=== PATIENT | female | born 1970 | race Hispanic/Latino ===

== ENCOUNTER 2019-06-09 16:19 | Outpatient (CLI) | payer BC, SELFPAY ==
--- NOTE | ~2019-06-09 | XR_ITS ---
XR ankle LT min 3V DATE: 06/09/2019 16:35 INDICATION: Left ankle injury, pain TECHNIQUE: 4 views COMPARISON: None FINDINGS: No fracture or dislocation of the ankle or disruption of the ankle mortise. No periosteal r eaction or bone destruction. IMPRESSION: Negative Reviewed, dictated and finalized at location B. IMPRESSION: Negative
== END 2019-06-09 16:20 ==
PROVIDERS: PCP Family Medicine; Visit Provider Family Medicine
DX: S99.912A Unspecified injury of left ankle, initial encounter (principal)
CPT/HCPCS: 73610

== ENCOUNTER 2019-09-09 11:57 | Inpatient (IN) | payer BC, MEDICAID, SELFPAY ==
--- NOTE | ~2019-09-09 | US_ITS ---
EXAMINATION: US right upper quadrant EXAM DATE: 09/09/2019 15:23 INDICATION: Right upper quadrant pain, nausea. Transaminitis. COVID 19 positive. TECHNIQUE: Multiple grayscale and Doppler images of the abdomen right upper quadrant were obtained (b y a technologist who performed the scan) and subsequently reviewed. There is no prior study for eliseo allen. FINDINGS: The pancreatic head and body are normal in appearance. The pancreatic tail is not visualized. Mildl y echogenic liver parenchyma, hepatic steatosis. There are no focal liver lesions identified. Ther e is no evidence of intrahepatic biliary duct dilation. Portal venous flow was seen in the hepatoped al, normal direction and has normal Doppler waveform. No right-sided hydronephrosis. Common bile duct measures 3 mm, which is normal. The gallbladder wall is normal in thickness, with ex pected amount of distention. No sonographic evidence of pericholecystic fluid. There is no cholelit hiases. Technologist performing exam reports patient did not demonstrate sonographic Gutierrez's sign. Please note that this sign is less reliable in patients who have received pain medication. IMPRESSION: 1. Hepatic steatosis. Reviewed, dictated and finalized at location B. IMPRESSION: 1. Hepatic steatosis.
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
[2019-09-09 12:21] VITALS: BP 102/71; PULSE 128; RESP 16; TEMP 37.7; O2SAT 99
[2019-09-09 12:33] LABS: Basophils Absolute Auto 0.1 K/mm3 (0.0-0.1); Basophils Percent Auto 0.3 % (0.2-1.2); Hematocrit 37.7 % (37.0-47.0); Hemoglobin 12.6 g/dL (12.0-15.0); Immature Granulocyte Absolute 0.16 K/mm3 (0.00-0.031); Immature Granulocyte Percent A 0.8 % (0-0.5); Lymphocytes Absolute Auto 1.15 K/mm3 (0.9-3.2); Mean Corpuscular HGB Conc 33.4 g/dl (32-36); Mean Corpuscular Hemoglobin 28.4 pg (26-34); Mean Corpuscular Volume 84.9 fl (80-100); Mean Platelet Volume 10.7 fl (7.4-10.4); Monocytes Absolute Auto 1.4 K/mm3 (0.1-0.6); Monocytes Percent Auto 7.1 % (2.6-8.5); Neutrophils Absolute Auto 16.4 K/mm3 (1.3-6.7); Neutrophils Percent Auto 85.8 % (45.5-73.1); Platelet Count Result 344 k/mm3 (150-375); Red Blood Count 4.44 M/mm3 (4.2-5.4); Red Cell Distribution Width 14.1 % (11.5-14.5); White Blood Count 19.2 K/mm3 (4.5-10.0)
[2019-09-09] MEDS: METOCLOPRAMIDE HCL INJ 10 MG/2 ML VIAL IV PUSH (12:36)
[2019-09-09] MEDS: SODIUM CHLORIDE 0.9% IV 1,000 ML 999 ML IV CONT (12:37)
[2019-09-09 12:44] LABS: Alanine Aminotransferase 66 U/L (4-35); Albumin Level 3.8 g/dL (3.5-5.1); Alkaline Phosphatase 148 U/L (38-126); Aspartate Amino Transferase 58 U/L (14-36); Bilirubin,Total 0.9 mg/dL (0.2-1.3); Blood Urea Nitrogen 12 mg/dL (7-17); Calcium 8.5 mg/dL (8.4-10.2); Carbon Dioxide 21 mmol/L (22-30); Chloride 104 mmol/L (98-107); Estimated Glomerular Filt Rate 52; Glucose 143 mg/dL (65-105); Lipase 27 U/L (23-300); Potassium 2.9 mmol/L (3.4-5.0); Sodium 136 mmol/L (137-145)
--- NOTE | 2019-09-09 12:45 | ED.HA ---
HPI - Headache General Chief Complaint: Headache Stated Complaint: COVID Positive, Headaches Time Seen by Provider: 09/09/19 12:03 Source: patient Mode of arrival: ambulatory Limitations: language barrier (family member is translating) History of Present Illness HPI Narrative: Patient presents the emergency department for headaches x2 weeks. Reports a week ago she was tested and is positive for cagle virus. Reports she has been having fever, headache and myalgias. Also reports some nausea. Reports she had some chest discomfort last night. Denies current chest pain or shortness of breath. Related Data Allergies Allergy/AdvReac Type Severity Reaction Status Date / Time No Known Allergies Allergy Verified 06/09/19 15:47 Review of Systems Review of Systems: Narrative: CONSTITUTIONAL: Reports fever CARDIOVASCULAR: Denies chest pain RESPIRATORY: Denies cough or dyspnea. GASTROINTESTINAL: Reports nausea, vomiting GENITOURINARY: Denies dysuria NEUROLOGIC: Reports headache. Denies numbness, or weakness. All systems reviewed & are unremarkable except as noted in HPI and below PMFSH Social History Social History Smoking status: Never smoker Alcohol intake: current Exam Narrative: Exam Narrative: GENERAL: Well-appearing, well-nourished, and in no acute distress. HEAD: Normocephalic, atraumatic. EYES: EOMI. ENT: Nares clear, no rhinorrhea or epistaxis. Mucous membranes moist. Oropharynx without tonsillar hypertrophy exudate or other lesions. Bilateral TMs pearly marino non-bulging NECK: Supple. No adenopathy or masses. CHEST: Clear to auscultation. No respiratory distress. No wheezes rales or rhonchi HEART: Regular rate and rhythm. No murmur heard. Normal peripheral pulses. ABDOMEN: Soft, nontender, nondistended, normal active bowel sounds. EXTREMITIES: Normal range of motion. No edema. Strength equal in bilateral upper and lower extremities SKIN: Warm, dry, no rash. NEURO: No focal deficits. Alert and oriented x3. Cranial nerves II through XII grossly intact PSYCH: Normal mood and affect Course Consultations Consultation #1: Spoke with hospitalist about patient and work-up who accepts admission Date: 09/09/19 Time: 17:10 Vital Signs Vital signs: Vital Signs Temperature 99.8 F H 09/09/19 12:21 Pulse Rate 128 H 09/09/19 12:21 Respiratory Rate 16 09/09/19 12:21 Blood Pressure 102/71 09/09/19 12:21 Pulse Oximetry 99 09/09/19 12:21 Temperature 99.8 F H 09/09/19 12:21 Pulse Rate 128 H 09/09/19 12:21 Respiratory Rate 16 09/09/19 12:21 Blood Pressure 102/71 09/09/19 12:21 Pulse Oximetry 99 09/09/19 12:21 MDM - Headache MDM Narrative Medical decision making narrative: Patient presents to the emergency department for cold symptoms x2 weeks. Patient tested positive for cagle virus 1 week ago. Reports continued headache and myalgias. Patient is neurologically intact. Tachycardic upon arrival, this improved after IV fluids. Patient reports relief of headache after migraine cocktail. CBC with leukocytosis to 19. Metabolic panel with evidence of dehydration and hypokalemia. Also with transaminitis. CRP is elevated to 41. LDH is elevated. Lactic is normal. Baseline troponin was negative. UA is without evidence of infection. Chest x-ray is without acute findings. Right upper quadrant ultrasound shows hepatic steatosis. Patient will be admitted for further observation due to dehydration and hypokalemia. Spoke with hospitalist about patient and work-up who accepts admission Lab Data Attestation: I reviewed the patient's lab results. Result diagrams: 09/09/19 12:26 09/09/19 12:26 Labs: Lab Results 09/09/19 09/09/19 09/09/19 Range/Units 12:26 12:26 12:26 WBC 19.2 H (4.5-10.0) K/mm3 RBC 4.44 (4.2-5.4) M/mm3 Hgb 12.6 (12.0-15.0) g/dL Hct 37.7 (37.0-47.0) % MCV 84.9 (80-100)
[2019-09-09 13:12] LABS: Lactate Dehydrogenase 645 U/L (313-618)
[2019-09-09 13:37] LABS: CRP 41.6 mg/dL (<1.0)
[2019-09-09 14:08] LABS: Troponin I < 0.012 ng/mL (0.000-0.034)
[2019-09-09 14:40] LABS: Add Urine Microscopic? YES; Appearance Urine Clear (Clear); Bilirubin Urine Negative (Negative); Blood Urine 1+ (Negative); Color Urine Straw (Yellow); Glucose Urine UA Negative (Negative); Ketones Urine Negative (Negative); Leukocyte Esterase Ur 2+ LEU/UL (Negative); Mucus Urine Rare /lpf; Nitrate Urine Negative (Negative); Protein Urine Negative (Negative); Specific Grav Ur 1.005 (1.001-1.035); Urobilinogen Urine Negative mg/dL (<2.0); WBC Urine 0-3 /hpf
[2019-09-09 15:00] VITALS: BP 120/70; PULSE 108; RESP 16; O2SAT 97
[2019-09-09] MEDS: SODIUM CHLORIDE 0.9% IV 1,000 ML 100 ML IV CONT (16:45)
[2019-09-09] MEDS: POTASSIUM CHLORIDE 20 MEQ TABLET 40 MEQ PO (17:00)
[2019-09-09 17:31] VITALS: TEMP 38.2
[2019-09-09] MEDS: IBUPROFEN IV 400 MG in SODIUM CHLORIDE 0.9% IV 100 ML 200 MG IVPB (17:31)
[2019-09-09 18:20] VITALS: BP 113/65; PULSE 114; RESP 20; TEMP 39
--- NOTE | 2019-09-09 18:38 | PC.NURSE ---
This patient, Jaye Berman, was admitted to [facility] Surg Room 329-01. Patient/family oriented to hospital policies and general routines including ID bracelet, bed and alarms, visiting hours, pain management, procedures, bathroom and other care routines, personal items, smoking policy, room service/diet, and visiting hours. Valuables list has been completed. Information on how to activate the Rapid Response Team has been discussed. Patient/Family are encouraged to report perceived risks to care and to ask questions if they do not understand what they are told or what they should do.
[2019-09-09 20:20] VITALS: BP 108/64; PULSE 93; RESP 16; TEMP 37.6; O2SAT 99
[2019-09-09 22:00] VITALS: BP 123/79; PULSE 94; RESP 16; TEMP 37.4; O2SAT 100
[2019-09-10] VITALS (12 sets, daily range): BP systolic 107–123; BP diastolic 68–87; PULSE 110–119; RESP 16–24; TEMP 36.4–39.4; O2SAT 98–100
[2019-09-10 08:34] LABS: Basophils Absolute Auto 0.1 K/mm3 (0.0-0.1); Basophils Percent Auto 0.4 % (0.2-1.2); Eosinophils Percent Auto 0.1 % (0-4.4); Hematocrit 32.2 % (37.0-47.0); Hemoglobin 10.8 g/dL (12.0-15.0); Immature Granulocyte Absolute 0.13 K/mm3 (0.00-0.031); Immature Granulocyte Percent A 0.8 % (0-0.5); Lymphocytes Absolute Auto 0.92 K/mm3 (0.9-3.2); Lymphocytes Percent Auto 5.7 % (18.3-44.2); Mean Corpuscular HGB Conc 33.5 g/dl (32-36); Mean Corpuscular Hemoglobin 28.6 pg (26-34); Mean Corpuscular Volume 85.2 fl (80-100); Mean Platelet Volume 10.7 fl (7.4-10.4); Monocytes Absolute Auto 1.3 K/mm3 (0.1-0.6); Monocytes Percent Auto 8.3 % (2.6-8.5); Neutrophils Absolute Auto 13.6 K/mm3 (1.3-6.7); Neutrophils Percent Auto 84.7 % (45.5-73.1); Platelet Count Result 276 k/mm3 (150-375); Red Blood Count 3.78 M/mm3 (4.2-5.4); Red Cell Distribution Width 14.5 % (11.5-14.5); White Blood Count 16.1 K/mm3 (4.5-10.0)
[2019-09-10 10:32] LABS: Alanine Aminotransferase 47 U/L (4-35); Albumin Level 3.2 g/dL (3.5-5.1); Alkaline Phosphatase 135 U/L (38-126); Aspartate Amino Transferase 33 U/L (14-36); Bilirubin,Total 0.9 mg/dL (0.2-1.3); Blood Urea Nitrogen 12 mg/dL (7-17); CRP 39.5 mg/dL (<1.0); Calcium 7.8 mg/dL (8.4-10.2); Carbon Dioxide 21 mmol/L (22-30); Chloride 109 mmol/L (98-107); Estimated Glomerular Filt Rate 52; Glucose 116 mg/dL (65-105); Magnesium 2.2 mg/dL (1.6-2.3); Potassium 3.5 mmol/L (3.4-5.0); Sodium 138 mmol/L (137-145)
--- NOTE | 2019-09-10 11:24 | PM.IMHP ---
H&P: HPI History of Present Illness Chief complaint: Vomiting, headache Narrative: Date of Service 09/10/19 1100 The supervising physician for this history and physical is Dr Caryn Gresham. Ms. Berman is a 49yo primarily Portuguese-speaking female and a [employer] foreign language interpreter was used for this encounter. Patient describes she tested positive for COVID-19 last week and noted she has been having fevers and chills at home. She describes significant headaches over the last one week but this has resolved this morning. She is not really able to tell me which day her symptoms started but notes several days of symptoms. She describes a slight cough a little bit of phlegm. She notes upper abdominal pain and vomiting over the last several days. Tells me she has not been able to keep any food down for days. She denies chest pain or shortness of breath. Routine labs show leukocytosis on arrival, [address]; hypokalemia 2.9 replaced in ED; Cr 1.1; mild transaminitis; elevated CRP, LDH, ferritin normal. She was admitted for febrile illness, dehydration and hypokalemia. Called patient's daughter, Evelyn, for an update. She was able to provide more information. She described the patient began feeling unwell a few weeks ago with mild fevers at home, and after finding out that her coworkers were positive for COVID she was tested 08/29/19. It was taking too long to get results so she went to [facility] in [place] was retested 09/01; both tests were positive. She started vomiting over this last weekend a few days ago. She did describe that her mother was mentioning burning with urination last week. Review of Systems Review of Systems: Narrative: She describes nausea, vomiting, and fevers at home. Not able to keep food down for days at home. Denies diarrhea or constipation. Slight cough but denies chest pain or shortness of breath.Twelve systems were reviewed with pertinent positives and negatives as per HPI. [facility] Past Medical History Medical History (Updated 09/10/19 @ 16:57 by Griselda Marin PA-C) Migraines Surgical History Surgical History (Updated 09/10/19 @ 16:28 by Griselda Marin PA-C) History of History of carpal tunnel release of both wrists around 2016 Family History Family History Other Diabetes mellitus Father Family history of malignant neoplasm of bone Malignant neoplasm of prostate Social History Social History (Updated 09/10/19 @ 16:30 by Griselda Marin PA-C) Social History: Ms. Berman lives at home in [place], [place] with her . She denies alcohol, tobacco, or other substance use. 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 Her PCP is Dr Esvin Caputo. She designates her daughter, Evelyn, as her surrogate decision maker and wishes to be full code status. Smoking status: Never smoker Second hand tobacco smoke exposure: Yes Alcohol intake: former Substance use: never Gender identity (if verbalized by the patient): Female Spiritual care concerns: No Meds Home Medications and Allergies Home Medications Medication Instructions Recorded Confirmed Type aspirin [Adult Low Dose Aspirin] 81 mg PO BID PRN 09/09/19 09/09/19 History Allergies Allergy/AdvReac Type Severity Reaction Status Date / Time No Known Allergies Allergy Verified 06/09/19 15:47 Vital Signs Last Vital Signs Temp 97.9 F 09/10/19 14:09 Pulse 115 H 09/10/19 14:09 Resp 18 09/10/19 14:09 BP 118/75 09/10/19 14:09 Pulse Ox 100 09/10/19 14:09 Exam Narrative: Exam Narrative: General: Ill-appearing female resting supine in bed; ice packs on due to fevers. HEENT: Normocephalic, atraumatic, EOMI, sclera nonicteric. Neck: Supple. Negative meningeal signs. Chest: Lungs clear to auscultation all elmore. Respirations ar
[2019-09-10 15:28] LABS: Add Urine Microscopic? YES; Appearance Urine Cloudy (Clear); Bacteria Urine Trace /hpf; Bilirubin Urine Negative (Negative); Blood Urine 2+ (Negative); Color Urine Yellow (Yellow); Glucose Urine UA Negative (Negative); Ketones Urine Trace mg/dL (Negative); Leukocyte Esterase Ur 3+ LEU/UL (NEGATIVE); Mucus Urine Rare /lpf; Nitrate Urine Positive (Negative); Protein Urine 2+ mg/dL (Negative); Specific Grav Ur 1.014 (1.001-1.035); WBC Urine >75 /hpf (0-3)
[2019-09-10] MEDS: LACTATED RINGERS 1,000 ML 40 ML IV CONT (16:58)
[2019-09-10] MEDS: ACETAMINOPHEN 325 MG TABLET 650 MG PO (18:02)
[2019-09-11] VITALS (10 sets, daily range): BP systolic 113–135; BP diastolic 80–99; PULSE 72–120; RESP 18–24; TEMP 36.6–39.1; O2SAT 95–100
[2019-09-11] MEDS: ACETAMINOPHEN 325 MG TABLET 650 MG PO ×3 (01:17→23:02)
[2019-09-11 06:10] LABS: Basophils Percent Auto 0.1 % (0.2-1.2); Eosinophils Percent Auto 0.1 % (0-4.4); Immature Granulocyte Absolute 0.13 K/mm3 (0.00-0.031); Immature Granulocyte Percent A 0.9 % (0-0.5); Lymphocytes Absolute Auto 1.79 K/mm3 (0.9-3.2); Lymphocytes Percent Auto 12.1 % (18.3-44.2); Mean Corpuscular HGB Conc 33.3 g/dl (32-36); Mean Corpuscular Hemoglobin 27.9 pg (26-34); Mean Corpuscular Volume 83.8 fl (80-100); Mean Platelet Volume 10.2 fl (7.4-10.4); Monocytes Absolute Auto 1.8 K/mm3 (0.1-0.6); Monocytes Percent Auto 11.8 % (2.6-8.5); Neutrophils Absolute Auto 11.1 K/mm3 (1.3-6.7); Platelet Count Result 246 k/mm3 (150-375); Red Blood Count 3.58 M/mm3 (4.2-5.4); Red Cell Distribution Width 14.5 % (11.5-14.5); White Blood Count 14.8 K/mm3 (4.5-10.0)
[2019-09-11 07:45] LABS: Alanine Aminotransferase 57 U/L (4-35); Albumin Level 3.1 g/dL (3.5-5.1); Alkaline Phosphatase 156 U/L (38-126); Aspartate Amino Transferase 54 U/L (14-36); Bilirubin,Total 0.7 mg/dL (0.2-1.3); Blood Urea Nitrogen 12 mg/dL (7-17); CRP 35.4 mg/dL (<1.0); Calcium 7.9 mg/dL (8.4-10.2); Carbon Dioxide 23 mmol/L (22-30); Chloride 106 mmol/L (98-107); Creatine Kinase 56 U/L (30-135); Estimated Glomerular Filt Rate 58; Glucose 113 mg/dL (65-105); Lactate Dehydrogenase 525 U/L (313-618); Magnesium 2.5 mg/dL (1.6-2.3); Phosphorus 3.2 mg/dL (2.5-4.5); Potassium 3.1 mmol/L (3.4-5.0); Sodium 137 mmol/L (137-145)
[2019-09-11] MEDS: POTASSIUM CHLORIDE 20 MEQ TABLET 60 MEQ PO (12:01)
[2019-09-11] MEDS: ENOXAPARIN 40 MG/0.4 ML SYRINGE SUB-Q (12:01)
--- NOTE | 2019-09-11 16:36 | PM.IMPN ---
Progress Note: A&P Assessment and Plan (1) Pyelonephritis: Code(s): N12 - Tubulo-interstitial nephritis, not specified as acute or chronic Status: Suspected Assessment and Plan: CT abdomen/pelvis shows prominent bilateral perinephric fat stranding with no stones or hydronephrosis. Repeat UA is suspicious for UTI. Urine culture and 2 of 2 blood cultures growing gram negative bacilli. Continue IV rocephin (day 2). Continue supportive care with gentle IV hydration for nonsensible losses with fevers; tylenol for fever. (2) Septicemia: Code(s): A41.9 - Sepsis, unspecified organism Status: Acute Assessment and Plan: Evident by leukocytosis, fever, tachycardia. Suspected source is above. See above. Monitor vital signs and urine output. (3) 2019 novel coronavirus detected: Code(s): U07.1 - COVID-19 Status: Acute Assessment and Plan: Per patient's daughter - 2 positive tests outpatient from 08/29/19 and 09/02/19. Repeat testing pending. Continue droplet isolation. (4) Acute hypokalemia: Code(s): E87.6 - Hypokalemia Status: Acute Assessment and Plan: K 3.1 this morning and repalced orally. Likely due to GI loss with recent vomiting. Will monitor. (5) Elevated serum creatinine: Code(s): R79.89 - Other specified abnormal findings of blood chemistry Status: Resolved Assessment and Plan: Cr improved to 1.0, was 0.6 in 2018. Will monitor. (6) Transaminitis: Code(s): R74.0 - Nonspecific elevation of levels of transaminase and lactic acid dehydrogenase [LDH] Status: Acute Assessment and Plan: Mild. Bili is normal. May be secondary to acute stress response to pyelo or due to viral syndrome with COVID or hepatic steatosis on US. Check hepatitis panel with AM labs. Subjective Date/time seen: 09/11/19 1100 Interval history: Ms. Berman is a 49yo F admitted for presumed pyelonephritis with septicemia. She reports feeling okay today. New today she is having left eye discomfort - eyelid is swollen and L eye is tearing. L eye not itchy. She was having a headache this morning that is better now. She has nausea after trying to eat but none at time of my exam. She denies chest pain or shortness of breath. No abdominal pain. She has a dry cough with a little bit of phlegm. Review of Systems Review of Systems: Narrative: Twelve systems were reviewed with pertinent positives and negatives as per HPI. Exam Narrative: Exam Narrative: General: Ill-appearing female resting supine in bed; ice packs on due to fevers. HEENT: Normocephalic, atraumatic, EOMI, sclera nonicteric. Left eyelid is puffy and clear tearing, no purulent exudate, minimally erythematous. Neck: Supple. Chest: Lungs clear to auscultation all elmore. Respirations are even and nonlabored. Tolerating room air. Heart: Heart rate is tachycardic. Rhythm is normal. Abdomen: Soft, bowel sounds present. Nondistended. Mild epigastric tenderness to palpation without guarding seems improved compared to yesterday. Extremities: Peripheral pulses intact. No edema. Neurologic: Answering questions appropriately. No focal neurological deficits noted. Speech is clear. Objective Data Vital Signs Vital Signs: Last Vital Signs Temp 101.6 F H 09/11/19 14:00 Pulse 120 H 09/11/19 14:00 Resp 20 09/11/19 14:00 BP 131/90 09/11/19 14:00 Pulse Ox 98 09/11/19 14:00 Intake/Output Intake/Output: Intake & Output 09/08/19 09/09/19 09/10/19 09/11/19 23:59 23:59 23:59 23:59 Intake Total 1169 2720 1260 Output Total 1625 850 Balance 1162 2859 410 Meds/Results Medications: Active Medications Generic Name Dose Route Start Last Admin Trade Name Freq PRN Reason Stop Dose Admin Acetami
[2019-09-11] MEDS: LACTATED RINGERS 1,000 ML 40 ML IV CONT (17:06)
[2019-09-12] VITALS (9 sets, daily range): BP systolic 114–137; BP diastolic 75–83; PULSE 86–116; RESP 16–20; TEMP 36.7–38.5; O2SAT 98–99
[2019-09-12] MEDS: ACETAMINOPHEN 325 MG TABLET 650 MG PO ×2 (06:28→19:42)
[2019-09-12 07:02] LABS: Basophils Percent Auto 0.2 % (0.2-1.2); Eosinophils Percent Auto 0.3 % (0-4.4); Hematocrit 29.2 % (37.0-47.0); Hemoglobin 9.7 g/dL (12.0-15.0); Immature Granulocyte Absolute 0.17 K/mm3 (0.00-0.031); Immature Granulocyte Percent A 1.4 % (0-0.5); Lymphocytes Percent Auto 12.1 % (18.3-44.2); Mean Corpuscular HGB Conc 33.2 g/dl (32-36); Mean Corpuscular Hemoglobin 27.9 pg (26-34); Mean Corpuscular Volume 83.9 fl (80-100); Mean Platelet Volume 10.5 fl (7.4-10.4); Monocytes Absolute Auto 1.4 K/mm3 (0.1-0.6); Monocytes Percent Auto 11.1 % (2.6-8.5); Neutrophils Absolute Auto 9.3 K/mm3 (1.3-6.7); Neutrophils Percent Auto 74.9 % (45.5-73.1); Platelet Count Result 263 k/mm3 (150-375); Red Blood Count 3.48 M/mm3 (4.2-5.4); Red Cell Distribution Width 14.6 % (11.5-14.5); White Blood Count 12.4 K/mm3 (4.5-10.0)
[2019-09-12 07:12] LABS: INR 1.2; Prothrombin Time 14.6 Seconds (11.1-14.7)
[2019-09-12 07:14] LABS: Alanine Aminotransferase 77 U/L (4-35); Alkaline Phosphatase 160 U/L (38-126); Aspartate Amino Transferase 78 U/L (14-36); Bilirubin,Total 0.8 mg/dL (0.2-1.3); Blood Urea Nitrogen 11 mg/dL (7-17); Carbon Dioxide 24 mmol/L (22-30); Chloride 106 mmol/L (98-107); Estimated Glomerular Filt Rate > 60; Glucose 100 mg/dL (65-105); Magnesium 2.3 mg/dL (1.6-2.3); Phosphorus 2.7 mg/dL (2.5-4.5); Potassium 3.5 mmol/L (3.4-5.0); Sodium 136 mmol/L (137-145)
[2019-09-12 07:58] LABS: Hepatitis B Surface Antigen Negative (Negative)
[2019-09-12 08:04] LABS: HAV RESULT Negative (Negative); Hepatitis B Core IgM Result Negative (Negative)
[2019-09-12 08:16] LABS: Hepatitis C Virus Antibody Negative (Negative)
[2019-09-12] MEDS: ENOXAPARIN 40 MG/0.4 ML SYRINGE SUB-Q (08:32)
[2019-09-12 13:34] LABS: SARS-CoV-2 RNA PCR Negative
[2019-09-12] MEDS: LACTATED RINGERS 1,000 ML 40 ML IV CONT (16:07)
--- NOTE | 2019-09-12 16:12 | PM.IMPN ---
Progress Note: A&P Assessment and Plan (1) Pyelonephritis: Code(s): N12 - Tubulo-interstitial nephritis, not specified as acute or chronic Status: Suspected Assessment and Plan: CT abdomen/pelvis shows prominent bilateral perinephric fat stranding with no stones or hydronephrosis. Urine culture and 2 of 2 blood cultures growing E coli. Continue IV rocephin (day 3). Continue supportive care with gentle IV hydration for nonsensible losses with fevers; tylenol for fever. (2) Septicemia: Code(s): A41.9 - Sepsis, unspecified organism Status: Acute Assessment and Plan: Evident by leukocytosis, fever, tachycardia. Suspected source is above due to E coli. See above. Monitor vital signs and urine output. (3) 2019 novel coronavirus detected: Code(s): U07.1 - COVID-19 Status: Resolved Assessment and Plan: Per patient's daughter - 2 positive tests outpatient from 08/29/19 and 09/02/19. Repeat testing is negative. Will discontinue isolation. Chest XR is clear with no pneumonia and I suspect her ongoing febrile illness is related to pyelo with septicemia. (4) Acute hypokalemia: Code(s): E87.6 - Hypokalemia Status: Acute Assessment and Plan: Improving, K 3.5 this morning. Likely due to GI loss with recent vomiting. Will monitor. (5) Transaminitis: Code(s): R74.0 - Nonspecific elevation of levels of transaminase and lactic acid dehydrogenase [LDH] Status: Acute Assessment and Plan: Mild. Bili is normal. May be secondary to acute stress response to pyelo or due to recent viral syndrome with COVID or hepatic steatosis on US. Hepatitis panel is negative. Subjective Date/time seen: 09/12/19 1300 Interval history: Ms. Berman is a 49yo F admitted for pyelonephritis with septicemia. She is feeling better today. She is sitting up in bedside chair about to eat lunch, walking independently in room, just showered. L eye discomfort/swelling/tearing is improved almost resolved. She denies chest pain or shortness of breath. She describes a dry cough. Abdominal pain and nausea improved today. Review of Systems Review of Systems: Narrative: Twelve systems were reviewed with pertinent positives and negatives as per HPI. Exam Narrative: Exam Narrative: General: Female comfortably sitting up in bedside chair in no acute distress. HEENT: Normocephalic, atraumatic, EOMI, sclera nonicteric. Left eyelid swelling improved. Neck: Supple. Chest: Lungs clear to auscultation all elmore. Respirations are even and nonlabored. Tolerating room air. Heart: Heart rate is tachycardic. Rhythm is normal. Abdomen: Soft, bowel sounds present. Nondistended. Nontender to palpation. Extremities: Peripheral pulses intact. No edema. Neurologic: Answering questions appropriately. No focal neurological deficits noted. Speech is clear. Objective Data Vital Signs Vital Signs: Last Vital Signs Temp 99.0 F 09/12/19 14:00 Pulse 116 H 09/12/19 14:00 Resp 20 09/12/19 14:00 BP 117/83 09/12/19 14:00 Pulse Ox 99 09/12/19 14:00 Intake/Output Intake/Output: Intake & Output 09/09/19 09/10/19 09/11/19 09/12/19 23:59 23:59 23:59 23:59 Intake Total 1169 2720 3410 1830 Output Total 1625 1750 1200 Balance 1169 1095 1660 630 Meds/Results Medications: Active Medications Generic Name Dose Route Start Last Admin Trade Name Freq PRN Reason Stop Dose Admin Acetaminophen 650 mg 09/10/19 17:01 09/12/19 06:28 Tylenol Tablet PO 650 mg Q4H PRN Administration Pain or Fever Enoxaparin Sodium 40 mg 09/11/19 09:00 09/12/19 08:32 Lovenox SUB-Q 40 mg DAILY LIDYA Administration Ceftriaxone Sodium/Dextrose 1 gm in 50 mls @ 100 mls/hr 09/10/19 17:00 09/12/19 16:03 Rocephin 1 Gm/D5w 50 Ml I
[2019-09-12] MEDS: POTASSIUM CHLORIDE 10 MEQ TABLET 20 MEQ PO (16:43)
[2019-09-13 01:57] VITALS: TEMP 38.6
[2019-09-13] MEDS: ACETAMINOPHEN 325 MG TABLET 650 MG PO ×3 (01:57→17:30)
[2019-09-13 02:15] VITALS: BP 136/87; PULSE 115; RESP 20; TEMP 38.6; O2SAT 100
[2019-09-13 02:57] VITALS: TEMP 37.2
[2019-09-13 05:00] VITALS: BP 136/81; PULSE 86; RESP 20; TEMP 37.1; O2SAT 98
[2019-09-13] MEDS: ENOXAPARIN 40 MG/0.4 ML SYRINGE SUB-Q (07:53)
[2019-09-13 08:07] LABS: Basophils Percent Auto 0.4 % (0.2-1.2); Eosinophils Absolute Auto 0.1 K/mm3 (0-0.3); Eosinophils Percent Auto 0.7 % (0-4.4); Hematocrit 28.8 % (37.0-47.0); Hemoglobin 9.4 g/dL (12.0-15.0); Immature Granulocyte Absolute 0.18 K/mm3 (0.00-0.031); Immature Granulocyte Percent A 1.9 % (0-0.5); Lymphocytes Percent Auto 19.6 % (18.3-44.2); Mean Corpuscular HGB Conc 32.6 g/dl (32-36); Mean Corpuscular Hemoglobin 27.6 pg (26-34); Mean Corpuscular Volume 84.5 fl (80-100); Monocytes Absolute Auto 1.1 K/mm3 (0.1-0.6); Monocytes Percent Auto 10.8 % (2.6-8.5); Neutrophils Absolute Auto 6.4 K/mm3 (1.3-6.7); Neutrophils Percent Auto 66.6 % (45.5-73.1); Platelet Count Result 287 k/mm3 (150-375); Red Blood Count 3.41 M/mm3 (4.2-5.4); Red Cell Distribution Width 14.6 % (11.5-14.5); White Blood Count 9.7 K/mm3 (4.5-10.0)
[2019-09-13 08:39] LABS: Alanine Aminotransferase 75 U/L (4-35); Alkaline Phosphatase 143 U/L (38-126); Aspartate Amino Transferase 61 U/L (14-36); Bilirubin,Total 0.6 mg/dL (0.2-1.3); Blood Urea Nitrogen 10 mg/dL (7-17); CRP 15.6 mg/dL (<1.0); Carbon Dioxide 25 mmol/L (22-30); Chloride 107 mmol/L (98-107); Estimated Glomerular Filt Rate > 60; Glucose 102 mg/dL (65-105); Magnesium 2.3 mg/dL (1.6-2.3); Potassium 3.7 mmol/L (3.4-5.0); Sodium 138 mmol/L (137-145)
--- NOTE | 2019-09-13 10:12 | PM.IMPN ---
Progress Note: A&P Assessment and Plan (1) Pyelonephritis: Code(s): N12 - Tubulo-interstitial nephritis, not specified as acute or chronic Status: Suspected Assessment and Plan: CT abdomen/pelvis shows prominent bilateral perinephric fat stranding with no stones or hydronephrosis. Urine culture and 2 of 2 blood cultures grew E coli sensitive to rocephin. Continue IV rocephin (day 4). Anticipate 1 - 2 more days of IV antibiotics until fevers improve. Continue supportive care with gentle IV hydration for nonsensible losses with fevers; tylenol for fever. (2) Septicemia: Code(s): A41.9 - Sepsis, unspecified organism Status: Acute Assessment and Plan: Evident by leukocytosis, fever, tachycardia. Suspected source is above due to E coli. See above. Monitor vital signs and urine output. (3) 2019 novel coronavirus detected: Code(s): U07.1 - COVID-19 Status: Resolved Assessment and Plan: Per patient's daughter - 2 positive tests outpatient from 08/29/19 and 09/02/19. Repeat testing is negative. Will discontinue isolation. Chest XR is clear with no pneumonia and I suspect her ongoing febrile illness is related to pyelo with septicemia. (4) Acute hypokalemia: Code(s): E87.6 - Hypokalemia Status: Acute Assessment and Plan: Improving, K 3.7 this morning. Likely due to GI loss with recent vomiting. Will monitor. (5) Transaminitis: Code(s): R74.0 - Nonspecific elevation of levels of transaminase and lactic acid dehydrogenase [LDH] Status: Acute Assessment and Plan: Mild. Bili is normal. May be secondary to acute stress response to pyelo or due to recent viral syndrome with COVID or hepatic steatosis on US. Hepatitis panel is negative. Subjective Date/time seen: 09/13/19 09 Interval history: Ms. Berman is a 49yo F admitted for pyelonephritis with septicemia. She did not get much sleep and has a headache this morning. She is sitting on the edge of the bed eating some breakfast. She denies nausea, vomiting, or abdominal pain this morning. She does not have chest pain or shortness of breath. Dry cough is same as days prior. No more L eye pain. Review of Systems Review of Systems: Narrative: Twelve systems were reviewed with pertinent positives and negatives as per HPI. Exam Narrative: Exam Narrative: General: Female sitting up on edge of bed in no acute distress. HEENT: Normocephalic, atraumatic, EOMI, sclera nonicteric. Left eyelid swelling improved. Chest: Lungs clear to auscultation all elmore. Respirations are even and nonlabored. Tolerating room air. Heart: Heart rate is tachycardic. Rhythm is normal. Abdomen: Soft, bowel sounds present. Nondistended. Nontender to palpation. Extremities: Peripheral pulses intact. No edema. Neurologic: Answering questions appropriately. No focal neurological deficits noted. Speech is clear. Objective Data Vital Signs Vital Signs: Last Vital Signs Temp 98.8 F 09/13/19 05:00 Pulse 86 09/13/19 05:00 Resp 20 09/13/19 05:00 BP 136/81 09/13/19 05:00 Pulse Ox 98 09/13/19 05:00 Intake/Output Intake/Output: Intake & Output 09/10/19 09/11/19 09/12/19 09/13/19 23:59 23:59 23:59 23:59 Intake Total 2720 3410 2820 1296 Output Total 1625 1750 2700 2200 Balance 1095 1660 120 -904 Meds/Results Medications: Active Medications Generic Name Dose Route Start Last Admin Trade Name Freq PRN Reason Stop Dose Admin Acetaminophen 650 mg 09/10/19 17:01 09/13/19 01:57 Tylenol Tablet PO 650 mg Q4H PRN Administration Pain or Fever Enoxaparin Sodium 40 mg 09/11/19 09:00 09/13/19 07:53 Lovenox SUB-Q 40 mg DAILY LIDYA Administration Ceftriaxone Sodium/Dextrose 1 gm in 50 mls @ 100 mls/hr 09/10/19 17:00
[2019-09-13] MEDS: DEXTROMETHORPHAN POLISTIREX 60 MG/10 ML SYRINGE PO (13:47)
[2019-09-13 14:00] VITALS: BP 112/72; PULSE 99; RESP 16; TEMP 36.2; O2SAT 98
[2019-09-13] MEDS: LACTATED RINGERS 1,000 ML 40 ML IV CONT (17:31)
[2019-09-13 22:00] VITALS: BP 129/87; PULSE 90; RESP 16; TEMP 36.2; O2SAT 99
[2019-09-14 02:44] VITALS: BP 136/88; PULSE 105; RESP 16; TEMP 36.4; O2SAT 98
[2019-09-14 06:31] LABS: Basophils Percent Auto 0.3 % (0.2-1.2); Eosinophils Absolute Auto 0.1 K/mm3 (0-0.3); Eosinophils Percent Auto 1.1 % (0-4.4); Hematocrit 28.8 % (37.0-47.0); Hemoglobin 9.4 g/dL (12.0-15.0); Immature Granulocyte Absolute 0.22 K/mm3 (0.00-0.031); Immature Granulocyte Percent A 2.4 % (0-0.5); Lymphocytes Absolute Auto 1.88 K/mm3 (0.9-3.2); Lymphocytes Percent Auto 20.2 % (18.3-44.2); Mean Corpuscular HGB Conc 32.6 g/dl (32-36); Mean Corpuscular Hemoglobin 27.8 pg (26-34); Mean Corpuscular Volume 85.2 fl (80-100); Mean Platelet Volume 10.3 fl (7.4-10.4); Monocytes Absolute Auto 1.2 K/mm3 (0.1-0.6); Monocytes Percent Auto 12.5 % (2.6-8.5); Neutrophils Absolute Auto 5.9 K/mm3 (1.3-6.7); Neutrophils Percent Auto 63.5 % (45.5-73.1); Platelet Count Result 338 k/mm3 (150-375); Red Blood Count 3.38 M/mm3 (4.2-5.4); Red Cell Distribution Width 14.5 % (11.5-14.5); White Blood Count 9.3 K/mm3 (4.5-10.0)
[2019-09-14 06:38] LABS: Alanine Aminotransferase 81 U/L (4-35); Albumin Level 3.2 g/dL (3.5-5.1); Alkaline Phosphatase 140 U/L (38-126); Aspartate Amino Transferase 65 U/L (14-36); Bilirubin,Total 0.6 mg/dL (0.2-1.3); Blood Urea Nitrogen 9 mg/dL (7-17); Calcium 8.3 mg/dL (8.4-10.2); Carbon Dioxide 25 mmol/L (22-30); Chloride 106 mmol/L (98-107); Estimated Glomerular Filt Rate > 60; Glucose 103 mg/dL (65-105); Magnesium 2.3 mg/dL (1.6-2.3); Potassium 3.7 mmol/L (3.4-5.0); Sodium 137 mmol/L (137-145)
[2019-09-14 06:57] VITALS: BP 131/76; PULSE 83; RESP 16; TEMP 36.9; O2SAT 97
[2019-09-14] MEDS: ENOXAPARIN 40 MG/0.4 ML SYRINGE SUB-Q (08:09)
--- NOTE | 2019-09-14 13:38 | PM.DS ---
DS: Admitting Diagnosis Admitting Diagnosis Admitting Diagnosis: Tubulo-interstitial nephritis, not specified as acute or chronic DS: Discharge Diagnosis Discharge Diagnosis (1) Pyelonephritis: Code(s): N12 - Tubulo-interstitial nephritis, not specified as acute or chronic Status: Suspected Assessment and Plan: Date of Service 09/14/19 Ms. Berman is a 49yo F who presented to the ED for evaluation of fevers, nausea, vomiting, and abdominal pain. She had recently tested positive for COVID-19 outpatient prior to this stay 08/29/19 and her associated symptoms over the 2 weeks were mostly fevers and a dry cough. CT abdomen/pelvis demonstrated findings consistent with pyelonephritis; urine and 2/2 blood cultures grew E coli. She was treated with supportive care to include antipyretics, antiemetics, and IV hydration. She was treated for pyelonephritis with septicemia with 5 days if IV ceftriaxone and discharged with oral antibiotics to complete a 14-day course. She was retested for COVID here and was negative 09/10/19. Her symptoms improved with the therapy outlined above and she was hemodynamically stable to discharge 09/14/19, afebrile for > 24 hrs. She was instructed to follow up with Dr Graff's office in 1 to 2 weeks. Ms. 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 CT abdomen/pelvis shows prominent bilateral perinephric fat stranding with no stones or hydronephrosis. Urine culture and 2 of 2 blood cultures grew E coli sensitive to rocephin. Treated with 5 days of IV Rocephin and discharged with oral cefdinir to complete the course. (2) Septicemia: Code(s): A41.9 - Sepsis, unspecified organism Status: Acute Assessment and Plan: Evident by leukocytosis, fever, tachycardia - resolved. Suspected source is urinary due to E coli. (3) 2019 novel coronavirus detected: Code(s): U07.1 - COVID-19 Status: Resolved Assessment and Plan: Per patient's daughter - 2 positive tests outpatient from 08/29/19 and 09/02/19. Repeat testing is negative 09/10/19. Chest XR is clear with no pneumonia and I suspect her ongoing febrile illness is related to pyelo with septicemia. (4) Acute hypokalemia: Code(s): E87.6 - Hypokalemia Status: Acute Assessment and Plan: Resolved, stable at discharge. K low on arrival and replaced. Likely due to GI loss with recent vomiting. (5) Transaminitis: Code(s): R74.0 - Nonspecific elevation of levels of transaminase and lactic acid dehydrogenase [LDH] Status: Acute Assessment and Plan: Mild. Bili is normal. May be secondary to acute stress response to pyelo or due to recent viral syndrome with COVID or hepatic steatosis on US. Hepatitis panel is negative. Follow up with PCP. DS: Summary Time Spent with Patient Time attestation: Total time spent providing and/or coordinating discharge services: 35 minutes Exam Narrative: Exam Narrative: Last Vital Signs Temp 98.0 F 09/14/19 14:00 Pulse 91 09/14/19 14:00 Resp 16 09/14/19 14:00 BP 117/85 09/14/19 14:00 Pulse Ox 100 09/14/19 14:00 General: Female sitting up on edge of bed in no acute distress. HEENT: Normocephalic, atraumatic, EOMI, sclera nonicteric. Left eyelid swelling improved. Chest: Lungs clear to auscultation all [place]. Respirations are even and nonlabored. Tolerating room air. Heart: Heart rate is tachycardic. Rhythm is normal. Abdomen: Soft, bowel sounds present. Nondistended. Nontender to palpation. Extremities: Peripheral pulses intact. No edema. Neurologic: Answering questions appropriately.
[2019-09-14 14:00] VITALS: BP 117/85; PULSE 91; RESP 16; TEMP 36.7; O2SAT 100
== END 2019-09-14 14:45 | disposition home or self-care (01) | DRG 872 ==
LOC: ANHED 17:11 → ANH3MEDSUR 17:29
PROVIDERS: Physician Assistant; Admitting Provider Family Medicine; Emergency Provider Emergency Medicine; PCP Family Medicine; Visit Provider Physician Assistant
DX: A41.51 Sepsis due to Escherichia coli [E. coli] (principal); N10 Acute pyelonephritis; N17.9 Acute kidney failure, unspecified; Z20.828 Contact with and (suspected) exposure to other viral communicable diseases; Z86.19 Personal history of other infectious and parasitic diseases; E87.6 Hypokalemia; E86.0 Dehydration; K76.0 Fatty (change of) liver, not elsewhere classified; R74.0 Nonspecific elevation of levels of transaminase and lactic acid dehydrogenase [LDH]; R79.89 Other specified abnormal findings of blood chemistry
CPT/HCPCS: 36415; 71045; 71250; 74176; 76705; 80053; 80074; 81001; 82550; 82728; 83605; 83615; 83690; 83735; 84100; 84484; 85025; 85610; 86140; 87040; 87077; 87086; 87088; 87186; 87635; 96361; 96374; 96375; 99285; A9270; C9803; G0378; J0131; J0696; J1200; J1650; J1741; J2765; J7030; J7120; U0003

== ENCOUNTER 2022-04-17 01:06 | Day surgery (SDC) | payer OTHER, SELFPAY ==
[2022-04-03 10:56] VITALS: BMI 30.2
[2022-04-17 07:08] VITALS: BP 127/89; PULSE 76; RESP 18; TEMP 35.8; O2SAT 100; BMI 28.5
[2022-04-17] MEDS: LACTATED RINGERS 1,000 ML 150 ML IV CONT (07:26)
--- NOTE | 2022-04-17 07:52 | P.PNAN_ITS ---
Anes - Initial Pre Proc Eval Procedure: Operation Date: 04/17/22 08:30 Proposed Procedures p Screening Colonoscopy - Yazan Cuenca MD Date/Time: 04/17/22 07:52 Surgeon: Yazan Cuenca MD Pre Op Diagnosis: neoplasm screening Patient Data Age: 52 Gender: F Height: 1.63 m Weight: 75.5 kg Last Vital Signs Temp 35.8 C L 04/17/22 07:08 Pulse 76 04/17/22 07:08 Resp 18 04/17/22 07:08 BP 127/89 04/17/22 07:08 Pulse Ox 100 04/17/22 07:08 O2 Del Method Room Air 04/17/22 07:08 Allergies Allergy/AdvReac Type Severity Reaction Status Date / Time No Known Allergies Allergy Verified 04/17/22 07:18 Home Medications Medication Instructions Recorded Confirmed Type No Home Medications 02/03/22 04/17/22 History Patient hx anesthesia problems: none Family hx anesthesia problems: none Results Review: All pre-operative results and documents have been reviewed as part of the pre-operative evaluation. [facility] Past Medical History Medical History Anemia Migraines Surgical History Surgical History History of History of carpal tunnel release of both wrists around 2016 Family History Family History Other Diabetes mellitus Father Family history of malignant neoplasm of bone Malignant neoplasm of prostate Social History Social History Social History: Ms. Berman lives at home in [place], [place] with her . She denies alcohol, tobacco, or other substance use. 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 Her PCP is Dr Esvin Caputo. She designates her daughter, Evelyn, as her surrogate decision maker and wishes to be full code status. Smoking status: Never smoker Second hand tobacco smoke exposure: Yes Alcohol intake: former Substance use: never Living arrangements: with family Gender identity (if verbalized by the patient): Female Spiritual care concerns: No Anes - Eval Final PreProcedure Day of Procedure 04/17/22 07:52 Patient weight: overweight Heart: regular rate and rhythm Lungs: clear to auscultation Airway: Mallampati scale class II Neurological: alert and oriented Last oral intake: >/= 8 hours ASA classification: II Emergent: no Anesthetic plan: proceed Anesthesia type and monitoring: general GIVS and standard monitoring Results Review: All pre-operative results and documents have been reviewed as part of the pre- operative evaluation. Informed Consent: The patient's anesthetic plan and its attendant risks and benefits were discussed with the patient/family/POA. Questions were solicited and answers provided to the satisfaction of the patient/family/POA.
--- NOTE | 2022-04-17 08:13 | PM.HPGS ---
History of Present Illness History of Present Illness Consent: Risks, benefits, and alternatives have been discussed and questions answered. Patient agrees to proceed with procedure. Chief complaint: neoplasm screening Narrative: Jaye Berman is a 52 year old female here for first screening colonoscopy Review of Systems Constitutional: Constitutional: Denies headache(s) and Denies weakness Eyes: Eyes: Denies blurry vision ENT: Reports Normal hearing present, Denies headache(s) and Denies neck pain Cardiovascular: Cardiovascular: Denies chest pain and Denies dyspnea Respiratory: Respiratory: Denies dyspnea Gastrointestinal: Gastrointestinal: Reports no additional gastrointestinal complaints Genitourinary: Genitourinary: Denies dysuria Musculoskeletal: Musculoskeletal: Denies neck pain Integumentary/Breasts: Skin/Breast: Denies dry skin Neurologic: Reports Normal hearing present, Denies headache(s) and Denies weakness Psychiatric: Psychiatric: Denies anxiety Endocrine: Endocrine: Denies change in body appearance Hematologic/Lymphatic: Hematologic/Lymphatic: Denies easy bleeding Allergic/Immunologic: Allergic/Immunologic: Denies urticaria PMFSH Past Medical History Medical History (Updated 04/17/22 @ 08:14 by Yazan Cuenca MD) Anemia Colon cancer screening Migraines Surgical History Surgical History History of History of carpal tunnel release of both wrists around 2016 Family History Family History Other Diabetes mellitus Father Family history of malignant neoplasm of bone Malignant neoplasm of prostate Social History Social History Social History: Ms. Berman lives at home in [place], [place] with her . She denies alcohol, tobacco, or other substance use. 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 Her PCP is Dr Esvin Caputo. She designates her daughter, Evelyn, as her surrogate decision maker and wishes to be full code status. Smoking status: Never smoker Second hand tobacco smoke exposure: Yes Alcohol intake: former Substance use: never Living arrangements: with family Gender identity (if verbalized by the patient): Female Spiritual care concerns: No Meds Home Medications and Allergies Home Medications Medication Instructions Recorded Confirmed Type No Home Medications 02/03/22 04/17/22 History Allergies Allergy/AdvReac Type Severity Reaction Status Date / Time No Known Allergies Allergy Verified 04/17/22 07:18 Vital Signs Vital Signs - 24 hr 04/17/22 07:08 Temperature 96.4 F L Pulse Rate 76 Respiratory Rate 18 Blood Pressure 127/89 Pulse Oximetry 100 Oxygen Delivery Room Air Exam Const: General: comfortable and no acute distress HENMT: Face/Nose/Sinus: Normal nares present Eyes: General: appearance normal, both eyes and all related structures Neck: Neck: no JVD Resp: Auscultation: clear to auscultation bilaterally Cardio: Rate: regular rate Rhythm: regular rhythm GI: Inspection: non-distended GI Palp: Yes Soft to palpation Skin: General skin exam: normal color Neuro: General: gait normal Speech: normal speech Extrem: General: normal to inspection Psych: Mental Status: mental status grossly normal Assessment and Plan Assessment and plan (1) Colon cancer screening: Code(s): Z12.11 - Encounter for screening for malignant neoplasm of colon Status: Acute Assessment and Plan: colonoscopy
[2022-04-17 08:30] VITALS: BP 85/54; PULSE 60; RESP 16; O2SAT 99
[2022-04-17 08:40] VITALS: BP 92/61; PULSE 60; RESP 14; O2SAT 100
[2022-04-17 08:50] VITALS: BP 103/65; PULSE 60; RESP 18; O2SAT 100
== END 2022-04-17 08:54 | disposition home or self-care (01) ==
PROVIDERS: PCP Family Medicine; Visit Provider Internal Medicine Gastroenterology
PROC: 0DJD8ZZ Inspection of Lower Intestinal Tract, Via Natural or Artificial Opening Endoscopic (ICD-10-PCS; CPT 45378; principal; 2022-04-17 08:30)
DX: Z12.11 Encounter for screening for malignant neoplasm of colon (principal); K57.30 Diverticulosis of large intestine without perforation or abscess without bleeding; K64.8 Other hemorrhoids
CPT/HCPCS: 45378; J2704; J7120

== ENCOUNTER 2022-10-19 14:14 | Outpatient (CLI) | payer OTHER, SELFPAY ==
--- NOTE | ~2022-10-19 | MM_ITS ---
EXAMINATION: MM screening shahla BI w gloria HISTORY: Screening mammogram TECHNIQUE: Craniocaudal and mediolateral oblique 3-D tomosynthesis images were obtained and synthetic 2-D images were generated. CAD analysis was submitted and interpreted. COMPARISON: No prior mammogram is available for comparison at this institution. BREAST PARENCHYMAL COMPOSITION: The breasts are almost entirely fatty. FINDINGS: No suspicious mass, calcification, or architectural distortion are identified in either taty ast to suggest malignancy. IMPRESSION: 1. No mammographic evidence of malignancy. 2. Recommend routine screening mammography in one year. BI-RADS Category 1: Negative Reviewed, dictated and finalized at location A.
== END 2022-10-19 14:15 | disposition home or self-care (01) ==
LOC: CHSIMG 14:18
PROVIDERS: PCP Family Medicine; Visit Provider Nurse Practitioner Obstetrics & Gynecology
DX: Z12.31 Encounter for screening mammogram for malignant neoplasm of breast (principal)
CPT/HCPCS: 77063; 77067

== ENCOUNTER 2022-10-26 13:11 | Emergency (ER) | payer OTHER, SELFPAY ==
--- NOTE | ~2022-10-26 | XR_ITS ---
EXAMINATION: XR ankle LT min 3V DATE: 10/26/2022 13:31 INDICATION: Left ankle injury and pain and swelling. TECHNIQUE: 4 views of left ankle were obtained. COMPARISON: Left ankle radiographs 06/09/2019 FINDINGS: Bone alignment is normal. No fracture. There is mild osteoarthritis of talonavicular joint. There is ankle soft tissue swelling. IMPRESSION: 1. No fracture. Reviewed, dictated and finalized at location A. IMPRESSION: 1. No fracture.
[2022-10-26 13:16] VITALS: BP 140/95; PULSE 68; RESP 16; TEMP 36.2; O2SAT 100
--- NOTE | 2022-10-26 13:27 | ED.LOWEXIN ---
HPI - Extremity Injury (Lower) General Chief Complaint: Extremity Injury, Lower Stated Complaint: Left Ankle Pain Time Seen by Provider: 10/26/22 13:38 Source: patient, RN notes reviewed and old records reviewed Mode of arrival: ambulatory Limitations: no limitations History of Present Illness HPI Narrative: 52-year-old female presents to the [facility] with complaints of left lateral ankle pain. Offer payroll officer, patient declined wanting to use family member. States that she rolled her ankle inversly 3 days ago and it still MD complaint: ankle injury Relieving factors: nothing Exacerbating factors: weight bearing Context: walking Associated symptoms: swelling Other symptoms: none Related Data Home Medications Medication Instructions Recorded Confirmed No Home Medications 02/03/22 04/17/22 Allergies Allergy/AdvReac Type Severity Reaction Status Date / Time No Known Allergies Allergy Verified 04/17/22 07:18 Review of Systems Review of Systems: All systems reviewed & are unremarkable except as noted in HPI and below Constitutional: Constitutional: Reports no additional constitutional complaints Eyes: Eyes: Reports no additional eye complaints ENT: Reports system reviewed and no additional complaints, except as documented Cardiovascular: Cardiovascular: Reports no additional cardiovascular complaints, Denies chest pain and Denies dyspnea Respiratory: Respiratory: Reports no additional respiratory complaints, Denies chest congestion, Denies cough and Denies dyspnea Gastrointestinal: Gastrointestinal: Reports no additional gastrointestinal complaints, Denies abdominal pain, Denies nausea and Denies vomiting Musculoskeletal: Musculoskeletal: Reports as per HPI, Reports arthralgias and Reports joint swelling Integumentary/Breasts: Skin/Breast: Reports system reviewed and no additional complaints, except as docu Neurologic: Reports system reviewed and no additional complaints, except as documented Psychiatric: Psychiatric: Reports no additional psychiatric complaints Allergic/Immunologic: Allergic/Immunologic: Reports no additional allergic/immunologic complaints [facility] Past Medical History Medical History Anemia Colon cancer screening Migraines Surgical History Surgical History History of History of carpal tunnel release of both wrists around 2016 Family History Family History Other Diabetes mellitus Father Family history of malignant neoplasm of bone Malignant neoplasm of prostate Social History Social History Social History: Ms. Berman lives at home in [place], [place] with her . She denies alcohol, tobacco, or other substance use. 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 Her PCP is Dr Esvin Caputo. She designates her daughter, Evelyn, as her surrogate decision maker and wishes to be full code status. Smoking status: Never smoker Second hand tobacco smoke exposure: Yes Alcohol intake: former Substance use: never Living arrangements: with family Gender identity (if verbalized by the patient): Female Spiritual care concerns: No Comments At the time of my signature, I reviewed and agree with the nursing past medical, surgical, social, and family history. There is no relevant family history pertinent to the patient complaint. Exam Const: General: cooperative, healthy appearing, comfortable, no acute distress, well developed, alert and well nourished Nutritional Appearance: well nourished Orientation/consciousness: patient oriented x3 Limitations: no limitations HENMT: Head: normal to inspection Ears: hearing grossly nor
== END 2022-10-26 13:47 | disposition home or self-care (01) ==
PROVIDERS: Emergency Provider Nurse Practitioner; PCP Family Medicine
DX: S93.402A Sprain of unspecified ligament of left ankle, initial encounter (principal); X50.9XXA Other and unspecified overexertion or strenuous movements or postures, initial encounter
CPT/HCPCS: 73610; 99213; G0463

== ENCOUNTER 2025-02-18 14:56 | Emergency (ER) | payer OTHER, SELFPAY ==
[2025-02-18] VITALS (10 sets, daily range): BP systolic 124–153; BP diastolic 78–90; PULSE 75–80; RESP 16; TEMP 36.6; O2SAT 98–100
--- NOTE | ~2025-02-18 | CT_ITS ---
EXAMINATION: CT abdomen pelvis w con DATE: 02/18/2025 17:14 INDICATION: Lower abdominal pain. Nausea vomiting and diarrhea. TECHNIQUE: Computed tomography (CT) of the abdomen and pelvis was performed 100 cc intravenous contrast. Automated exposure control and iterative reconstruction technique were employed. The dose-length product was 509.25 mGy-cm. COMPARISON: CT chest abdomen and pelvis dated 09/10/2019. FINDINGS: Lung bases do not show acute findings. No focal lesions of liver and spleen. Gallbladder is distended in size. No calcified gallstones or edema. Bile ducts are normal in size. Pancreas and kidneys do not show acute findings. No retroperitoneal adenopathy or bowel obstruction. Normal size retrocecal appendix. Retroverted uterus. No adnexal mass or fluid collections. Calcified fibroid at the fundus of the uterus. IMPRESSION: 1. Distended gallbladder. No radiopaque gallstones or edema. Please correlate with clinical findings. 2. Bile ducts are normal in size. Pancreas shows no acute findings. 3. Retroverted uterus with calcified fibroid at the fundus. No adnexal mass or fluid collections. Reviewed, dictated and finalized at location [facility] IMPRESSION: 1. Distended gallbladder. No radiopaque gallstones or edema. Please correlate w ith clinical findings. 2. Bile ducts are normal in size. Pancreas shows no acute findings. 3. Retroverted uterus with calcified fibroid at the fundus. No adnexal mass or fluid collections.
[2025-02-18 16:20] LABS: Hematocrit 42.4 % (37.0-47.0); Hemoglobin 14.0 g/dL (12.0-15.0); Immature Granulocyte Percent A 0.2 % (0-0.5); Lymphocytes Absolute Auto 1.91 K/mm3 (0.9-3.2); Mean Corpuscular HGB Conc 33.0 g/dl (32-36); Mean Corpuscular Hemoglobin 29.0 pg (26-34); Mean Corpuscular Volume 88.0 fl (80-100); Nucleated Red Blood Cells Absolute Auto 0.000 K/mm3 (0.0-0.012); Nucleated Red Blood Cells Perc 0.0 % (0.0-0.2); Platelet Count Result 247 k/mm3 (150-375); Red Blood Count 4.82 M/mm3 (4.2-5.4); White Blood Count 5.5 K/mm3 (4.5-10.0)
[2025-02-18 16:26] LABS: Add Urine Microscopic? YES; Appearance Urine Clear (Clear); Glucose Urine UA Negative (Negative); Leukocyte Esterase Ur Negative LEU/UL (Negative); Nitrate Urine Negative (Negative); Non Pathogenic Casts 0-2; Specific Grav Ur 1.010 (1.001-1.035)
[2025-02-18 16:31] LABS: Alanine Aminotransferase 32 U/L (6-35); Albumin Level 4.4 g/dL (3.5-5.1); Alkaline Phosphatase 83 U/L (38-126); Anion Gap 5 mmol/L (4-12); Aspartate Amino Transferase 48 U/L (14-36); Bilirubin,Total 0.7 mg/dL (0.2-1.3); Blood Urea Nitrogen 11 mg/dL (7-17); Calcium 9.0 mg/dL (8.4-10.2); Carbon Dioxide 26 mmol/L (22-30); Chloride 108 mmol/L (98-107); Estimated CRCL calculation 75 ml/min; Estimated Glomerular Filt Rate > 60; Glucose 89 mg/dL (65-110); Lipase 103 U/L (23-300); Potassium 3.5 mmol/L (3.4-5.0); Sodium 139 mmol/L (137-145); Total Protein 8.0 g/dL (6.3-8.2)
[2025-02-18] MEDS: LACTATED RINGERS 1,000 ML 999 ML IV CONT (16:41)
[2025-02-18] MEDS: ONDANSETRON INJ 4 MG/2 ML VIAL IV PUSH (16:42)
[2025-02-18 17:11] LABS: BEDSIDEPREGUCG Negative (Negative)
--- NOTE | 2025-02-18 19:43 | ED_ITS ---
HPI - Nausea/Vomiting/Diarrhea General Chief complaint: Nausea/Vomiting/Diarrhea Stated complaint: diarrhea x 4 days Time Seen by Provider: 02/18/25 15:58 History of Present Illness HPI Narrative: Patient presenting here with diarrhea for last few days, also has had nausea vomiting and some lower back discomfort. Related Data Allergies Allergy/AdvReac Type Severity Reaction Status Date / Time No Known Allergies Allergy Verified 02/18/25 14:57 Review of Systems 2 Review of Systems: All systems reviewed & are unremarkable except as noted in HPI and below PMFSH Past Medical History Medical History Anemia Colon cancer screening Migraines Surgical History Surgical History History of History of carpal tunnel release of both wrists around 2016 Family History Family History Other Diabetes mellitus Father Family history of malignant neoplasm of bone Malignant neoplasm of prostate Social History Social History Social History: Ms. Berman lives at home in [place], [place] with her . She denies alcohol, tobacco, or other substance use. 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 Her PCP is Dr Esvin Caputo. She designates her daughter, Evelyn, as her surrogate decision maker and wishes to be full code status. Smoking status: Never smoker Second hand tobacco smoke exposure: Yes Alcohol intake: former Substance use: never Living arrangements: with family Gender identity (if verbalized by the patient): Female Spiritual care concerns: No Exam 2 Narrative: EXAMINATION OF ORGAN SYSTEMS/BODY AREAS: Constitutional: Vital signs per nursing GENERAL:No acute distress, non-toxic appearing. HEAD: Normal with no signs of head trauma. EYES: EOMI, conjunctiva normal ENT: Hearing grossly intact LUNGS: Nonlabored breathing. HEART: Regular rate and rhythm ABD: Soft, nontender to palpation EXT: Normal range of motion SKIN: No rashes or lesions. NEURO: Alert. No gross focal sensory or strength deficits. Ambulating with normal steady gait. PSYCH: Normal affect Course Vital Signs Vital signs: Vital Signs Temperature 98 F 02/18/25 14:59 Pulse Rate 75 02/18/25 14:59 Respiratory Rate 16 02/18/25 14:59 Blood Pressure 153/90 H 02/18/25 14:59 Pulse Oximetry 100 02/18/25 14:59 Oxygen Delivery Room Air 02/18/25 14:59 Temperature 98 F 02/18/25 14:59 Pulse Rate 80 02/18/25 18:45 Respiratory Rate 16 02/18/25 18:45 Blood Pressure 142/84 H 02/18/25 18:45 Pulse Oximetry 98 02/18/25 18:45 Oxygen Delivery Room Air 02/18/25 14:59 MDM MDM Narrative Medical decision making narrative: Electronic medical record was reviewed. Patient presented to the ED with complaint of abdominal pain and vomiting and diarrhea. Vitals were within acceptable limits. Physical exam revealed soft abdomen without palpable tenderness. IV access was established by nursing staff. Patient was given zofran, fluids. CBC, BMP, lipase, LFTs, bilirubin and alk phos were obtained. Labs were pertinent for all labs within acceptable limits other than very small amount of blood in urine. Decision was made to obtain a CT-abdomen to evaluate for acute abdominal process. CT-abdomen per radiology interpretation is unremarkable for acute intra-abdominal process. On reevaluation, the patient states that they are feeling much better. There were no witnessed episodes of vomiting in the emergency department. They are not complaining of any new abdominal pain. Repeat examination did not show any significant guarding or rebound. No new tenderness. At this time I do not feel there is any further emergent treatment to be provided. The patient was given strict return precautions, if they are to develop any worsening abdominal pain, vomiting, or blood in the vomit they are to return to the emergency department immediately. Patient verbally acknowledges understanding these directions. The patient was informed of the above diagnostic test findings. No further workup is necessary at this time. They will be discharged home with prescriptions. They were advised to follow-up with their PCP in 2 days. The patient feels that this is appropriate medical decision making and verbalizes an understanding of the discharge instructions. Differential Diagnosis Differential Diagnosis: Gastroenteritis, nephrolithiasis, urinary tract infection, etc. Lab Data 02/18/25 16:14 02/18/25 16:14 Labs: Lab Results 02/18/25 02/18/25 02/18/25 Range/Units 16:10 16:14 17:00 WBC 5.5 (4.5-10.0) K/mm3 RBC 4.82 (4.2-5.4) M/mm3 Hgb 14.0 D (12.0-15.0) g/dL Hct 42.4 (37.0-47.0) % MCV 88.0 (80-100) fl MCH 29.0 (26-34) pg MCHC 33.0 (32-36) g/dl RDW 13.1 (11.5-14.5) % Plt Count 247 (150-375) k/mm3 MPV 10.1 (7.4-10.4) fl Immature Gran % (Auto) 0.2 (0-0.5) % Neut % (Auto) 50.6 (45.5-73.1) % Lymph % (Auto) 34.9 (18.3-44.2) % [place] % (Auto) 12.4 H (2.6-8.5) % Eos % (Auto) 1.5 (0-4.4) % Baso % (Auto) 0.4 (0.2-1.2) % Lymph # (Auto) 1.91 (0.9-3.2) K/mm3 [place] # (Auto) 0.7 H (0.1-0.6) K/mm3 Eos # (Auto) 0.1 (0-0.3) K/mm3 Baso # (Auto) 0.0 (0.0-0.1) K/mm3 Abs Immat Gran (auto) 0.01 (0.00-0.031) K/mm3 Absolute Neuts (auto) 2.8 (1.3-6.7) K/mm3 Absolute Nucleated RBC 0.000 (0.0-0.012) K/mm3 Nucleated RBC % 0.0 (0.0-0.2) % Sodium 139 (137-145) mmol/L Potassium 3.5 (3.4-5.0) mmol/L Chloride 108 H (98-107) mmol/L Carbon Dioxide 26 (22-30) mmol/L Anion Gap 5 (4-12) mmol/L BUN 11 (7-17) mg/dL Creatinine 0.73 (0.7-1.0) mg/dL Estim Creat Clear Calc 75 ml/min Estimated GFR > 60 (59 - ) Glucose 89 (65-110) mg/dL Calcium 9.0 (8.4-10.2) mg/dL Total Bilirubin 0.7 (0.2-1.3) mg/dL AST 48 H (14-36) U/L ALT 32 (6-35) U/L Alkaline Phosphatase 83 (38-126) U/L Total Protein 8.0 (6.3-8.2) g/dL Albumin 4.4 (3.5-5.1) g/dL Lipase 103 (23-300) U/L Urine Color Yellow (Yellow) Urine Appearance Clear (Clear) Urine pH 6.5 (5.0-9.0) Ur Specific [place] 1.010 (1.001-1.035) Urine Protein Negative (Negative) mg/dL Urine Glucose (UA) Negative (Negative) mg/dL Urine Ketones Negative (Negative) mg/dL Ur Blood (Man) 1+ H (Negative) Urine Nitrate Negative (Negative) Urine Bilirubin Negative (Negative) Urine Urobilinogen 0.2 (<2.0) mg/dL Leukocyte Esterase Rfl Negative (Negative) ROMI/UL Urine RBC 6-10 H (0-2) /hpf Urine WBC 0-5 (0-3) /hpf Ur Squamous Epith Cells None seen (Few) /hpf Urine Bacteria None seen /hpf Urine Casts 0-2 POC Urine HCG, Qual Negative (Negative) Imaging Data Radiologist's impression: ITS Impressions Abdomen/Pelvis CT 02/18/25 17:16 IMPRESSION: 1. Distended gallbladder. No radiopaque gallstones or edema. Please correlate with clinical findings. 2. Bile ducts are normal in size. Pancreas shows no acute findings. 3. Retroverted uterus with calcified fibroid at the fundus. No adnexal mass or fluid collections. Discharge Plan Discharge Clinical Impression: Nausea, vomiting, and diarrhea, Low back pain Patient Disposition: Home Condition: Stable Instructions: Acute Nausea and Vomiting (ED), Acute Diarrhea (ED), Back Pain (ED) Additional Instructions: Please follow up with your doctor; can try the medications as prescribed, you can always return for any further issues. Patient Language: Nepali Prescriptions: New methocarbamol 750 mg tablet 750 mg PO TID PRN (Reason: muscle spasm) Qty: 30 0RF lidocaine 5 % adhesive patch,medicated 1 patch topical DAILY Qty: 15 0RF Rx Instructions: leave on most painful area for up to 12 hrs ondansetron 4 mg tablet,disintegrating 4 mg PO Q8H PRN (Reason: nausea and vomiting) Qty: 10 0RF Follow-up/Referrals: Esvin Graff MD [Primary Care Provider, Family Practice] - 2 Days
--- OUTSIDE RECORDS SUMMARY | 2025-02-18 19:51 | XMS_ITS | Data Portability ---
Author Organization [facility] Address [address] [place] [address] Care Team Providers Care Manager Nuclear Name Role Phone SHAISTA BURNETTE Primary Care Provider Assessment Encounter Date Assessment Date Assessment LastModified by Organization Details LastModified Time 01/28/2022 01/28/2022 Annual gynecological exam performed. Patient will come back in a year unless there are new symptoms. [email or web address] Not available 01/28/2022 12:03:38 Plan of Treatment Reminders Order Date Submit Date Provider Last Modified By Organization Details Last Modified Time Details Appointments None record ed. Lab None record ed. Referral None record ed. Procedures None record ed. Surgeries None record ed. Imaging None record ed. Medication Orders None record ed. Patient TargetsNo targets recorded. Patient InstructionsNo instructions recorded. Reason for Referral None Reported. Results Created Date Observation Date Name Description Value Unit Range Abnormal Flag Note LastModifiedBy Organization Detail LastModifiedTime 01/31/20 22 01/30/2022 IMAGE GUIDE D PAP AND HPV REGAR DLESS image guided Pap, HPV regardless of Pap result SEE RESULT S BELOW CASE REPOR T: Cytol ogy Gynec ologi shirley Repor t Case: [id number] Autho cliff beltre Provi fred: Scooter Ball Colle cted: 01/30 1532 SWATCHER Order ing Locat ion: [place] [facility] Recei pilar: 01/31 0353 First Scree n: Nacha mpass ak, Sivil ay, CT Speci men: Scree denny Pap - Image d, Cervi x STATE MENT OF ADEQU ACY: Satis facto ry for evalu ation Trans forma tion zone compo nent prese nt FINAL DIAGN OSIS: Negat agata for Intra epith elial Lesio n or Silvia carpio (NIL) . Atrop hy prese nt. Elect maru harmon d by Satnam milian, Anastacia batista, CT on 02/01 at 9:28 PM ----- ----- ----- ----- ----- ----- ----- ----- ----- ----- ----- ----- ----- ----- ----- ----- ----- ---- HPV RESUL TS: HPV mRNA E6/E7 : No HPV mRNA Detec tanya NOTE: This high risk HPV mRNA assay detec ts fourt een high- risk HPV types (16, 18, 31, 33, 35, 39, 45, 51, 52, 56, 58, 59, 66, 68) witho ut diffe renti ation . COMME NT: Note: This speci men was revie wed by a Cytot echno logis t and/o r Patho logis t (as indic ated in this repor t) after evalu ation using the Thinp rep Imagi ng Syste m. CLINI SHIRLEY INFOR MATIO N: Menst rual Statu s: LMP (if appli cable ): Clini shirley Histo ry/Pr eviou s Pap: Type of Neopl chris (if appli cable ): Signi fican t Clini shirley Findi ngs: Other Histo ry: Hormo maciel (if appli cable ): PAP EDUCA IWONA L NOTE: The Pap Test is a scree denny test with an inher ent false negat agata rate. Liqui d-bas ed sampl ing may decre ase, but will not elimi kyung, false negat agata resul ts. A negat agata resul t does not precl ude the prese nce and/o r devel opmen t of disea se, since the prese nce of abnor mal cells in the sampl e depen ds on the locat ion of the lesio n and sampl ing techn ique. Genaro nued regul ar jessica baldwin is the best metho d of cance r preve ntion . If repor tanya cytol ogic findi ng do not corre late with physi shirley and/o r histo rical findi ngs, bhavani santana lowell is recom zonia d, as clini felix boston nted. Not Available [facility] (Lab) [address], [place], [address], 02/01/2022 22:31:01 Result Notes None recorded. Procedures Surgical History Date Name Laterality Status Provider Name and Address Organization Details Recorded Time 2 Date of Last Pap Smear completed Yancylaila Gage [facility] 01/28/2022 11:56:47 0 surgical procedure on eye proper using laser completed Yancylaila Gage [facility] 01/28/2022 12:02:54 8 Carpal tunnel surgery completed Yancylaila Gage [facility] 01/28/2022 12:01:57 8 [facility] 12:03:08 Imaging Results None recorded. Procedure Notes None recorded. Medical Equipment None Reported. Allergies No known drug allergies Medications Not known to be on any medication Vitals Date Recorded Body height Systolic And Diastolic Provider Name and Address Organization Details Last Updated DateTime 01/28/2022 155.58 cm 127/76 mm[Hg] Ksenia Billings, LIN- [address], [place], [address], [facility] 01/28/2022 12:07:29 Date Recorded Body mass index (BMI) Body weight Provider Name and Address Organization Details Last Updated DateTime 01/28/2022 31.7 kg/m2 36835.11 g Yancy Gage [facility] 01/28/2022 11:56:16 Social History Question Answer Notes LastModified by Organmiri etienne Details LastModified Time Tobacco Smoking Status Never Smoker Yancy Gage [facility] 01/28/2022 12:01:23 Are You Blind Or Do You Have Difficulty Seeing? No [email or web address] Information n ot available 01/28/2022 What Is Your Level Of Caffeine Consumption? Moderate [email or web address] Information not available 01/28/2022 In The 14 Days Before Symptom Onset, Have You Had Close Contact With A Laboratory-confirm ed COVID-19 While That Case Was Ill? No [email or web address] Information n ot available 01/28/2022 In The 14 Days Before Symptom Onset, Have You Had Close Contact With A Person Who Is Under Investigation For COVID-19 While That Person Was Ill? No [email or web address] Information not available 01/28/2022 Have You Been To An Area Known To Be High Risk For COVID-19? No [email or web address] Information not available 01/28/2022 Are You Deaf Or Do You Have Serious Difficulty Hearing? No [email or web address] Information not available 01/28/2022 What Type Of Diet Are You Following? REGULAR [email or web address] Information n ot available 01/28/2022 Have You Ever Been Counseled For Unhealthy Alcohol Use? No [email or web address] Information not available 01/28/2022 Do You Use Your Seat Belt Or Car Seat Routinely? Yes [email or web address] Information not available 01/28/2022 Do You Have Smoke And Carbon Monoxide Detectors In Your Home? Yes [email or web address] Information not available 01/28/2022 Do You Use Sunscreen Routinely? Yes [email or web address] Information not available 01/28/2022 Has Tobacco Cessation Counseling Been Provided? No [email or web address] Information not available 01/28/2022 Do You Have Difficulty Walking Or Climbing Stairs? No [email or web address] Information not available 01/28/2022 Sex: Unknown Functional Status Question Answer Note LastModified by Organizat ion Details LastModified Time Do you use any illicit or recreational drugs? No [email or web address] Information not available 01/28/2022 Do you or have you ever used any other forms of tobacco or nicotine? No [email or web address] Information not available 01/28/2022 What is your level of alcohol consumption? Occasional [email or web address] Information not available 01/28/2022 Are you able to walk independently without assistance or assistive devices? YESWOREST [email or web address] Information not available 01/28/2022 Are you able to care for yourself independently? Yes [email or web address] Information not available 01/28/2022 Do you have difficulty dressing, bathing, grooming, or toileting? No [email or web address] Information not available 01/28/2022 What is your exercise level? Occasional [email or web address] Information not available 01/28/2022 Mental Status Question Answer Note LastModified by Organization D etails LastModified Time Do you feel stressed (tense, restless, nervous, or anxious, or unable to sleep at night)? [id number] Information not available 01/28/2022 Family History Relationship Description Onset Age of this Age Resolved Age Notes LastModified by Organization Details LastModified Time Mother Hypertensive disorder [email or web address] Not available 01/28 11:59:55 Father Malignant neoplasm of prostate 50 [email or web address] Not available 01/28 12:00:23 Paternal Aunt Malignant neoplasm of bone [email or web address] Not available 01/28 12:00:55 Medical History Condition Response Allergies (Food, seasonal, environmental ) N Other N Breast Cancer N Drug/Latex Allergies/Reactions N Blood Transfusion N Dermatologic Disorders N Lung Disease N Defects or Inherited Disease N Breast Problem N Gestational Diabetes N Hematologic disorders N Anesthesia Complications N History of STI N Deep Vein Thrombosis N Polycystic ovary syndrome N Anxiety Disorder N Autoimmune disease N Arthritis N Infertility N Polyps N Acid Reflux (GERD) N History of abnormal pap N Cancer N Stroke N Varicosities N Neurologic/Epilepsy N Endometriosis N High Cholesterol N Headaches N Fibromyalgia N Kidney Disease N Heart Problems N Kidney or Bladder Problems N Thyroid Problems N GI Problems N Eating Disorder N Anemia N Art (IVF or FET) N Psychiatric Illness N Ovarian Cancer N Diabetes N Pulmonary (TB, Asthma) N Hepatitis/Liver Disease N No Past Medical History N Eczema N Urinary Tract Infection N Abuse/Domestic Violence N Asthma N Trauma/Violence N Depression/ depression N Heart Disease N Pre-Eclampsia N Hypertension N Osteoporosis N Thrombophilias N Gynecological History Statement/Question Response Date of DEXA bone scan Abnormal Pap N Date of Last Pap Smear 01/28/2022 Current Control Method Menopause Date of Last Mammogram Date of LMP 03/12/2013 Obstetrics History GPAL:G 4 P 2 1 1 3 Type Value Full Term 2 Spontaneous 1 Premature 1 Living 3 Total 4 Past Encounters Encounter ID Performer Location Encounter Start Date Encounter Closed Date Diagnosis/Indication Diagnosis SNOMED-CT Code Diagnosis ICD10 Code Diagnosis IMO Codes Diagnosis Note [id number] Ksenia Billings [facility] [address] [address] 01/28/2022 11:29:35 01/28/2022 11:32:22 Gynecologic examination 54412810 Z01.419 Take Calcium with Vitamin D 12-1500mg daily. Do monthly self breast exams. It is advised to get annual flu shot in the fall and she could obtain at [facility] or [facility] care clinic. If you haven't received the Tdap vaccine in the last 10 years you should obtain one as well. Have mammogram yearly, bone density every 2-3 years and colonoscop y every 5-10 years depending on findings and history. Engage in daily exercise of low impact aerobic exercise 45-60 minutes 4-5 times weekly. Avoid tobacco and illicit drugs as well as using moderation with alcohol intake less than 1-2 8 oz beverages daily. This lifestyle behavior pattern will lead to less health conditions and longer life span. If BMI greater than 25 weight watchers or dietary consult advised. Questions have been answered. Patient appears to understand instructio ns, but if you have any further questions call or respond to this email Pap/hpv sentSTD Screen declinedGe netic Screen discussedC olon Screen PCPDexa Screen PCPRoutine Labs PCPMammo ordered Note: Language barrier-da sonali assists in translatin g Health Concerns Section Related Observation LastModified by Organization Detai ls LastModified Time None Recorded Concern Status LastModified by Organization Details LastModified Time None Recorded Advance Directives Directive None Recorded Payers Insurance Date Sequence Insurance Name Policy Number Policy Silver Covered Member ID Silver Member ID Guarantor Name 09/20/2024 1 [facility] (MEDICAID HMO) [id number] Jaye Berman [id number] Jaye Berman Notes Date Note Type Note Provider Name and Address Organization Details Recorded Time 2 text/html Annual Mri Manager Post-MenopausalReported by PatientGenitourinary symptomsFor menopausal symptoms, patient reportsno menopausal symptomsandnormal vaginal lubrication. For vaginal bleeding, patient reportshistory of menopause having occurredandno history of post menopausal bleeding. For urinary symptoms, patient reportsno hematuria,no incontinence,no nocturia, andno urinary frequency. For vulva, patient reportsno genital lesionandno vulvar atrophy. For vagina, patient reportsnormal vaginal dischargeandno vaginal atrophy.Breast symptomsFor breast, patient reportsno breast lump,no nipple discharge, andno breast pain.Psychological symptomsFor sexual complaints, patient reportsno sexual complaints. For psychological symptoms, patient reportsno depressionandno anxiety.Preventative measuresFor preventive measures, patient reportsencourage regular mammograms starting age 40,encourage self breast examination,encourage regular exercise,encourage no tobacco use,needs to schedule mammogram, andneeds to schedule colonoscopy (working with pcp). TRE Vo- [address], [place], [address], [facility] 01/28/2022 12:07:36 OBGyn Episode Ob Episode Information Episode Created Date Number of Fetuses Patient Bloodtype Patient rh Status Prepregnancy Weight lbs Domestic Partner Domestic Partner Phone Father Name Desktop Publishing Associate Status 01/29/20 22 1 CLOSED Fetus Data First Name Last Name Admitted to NICU Weight (g) Sex Living Outcome Pediatric Complications Fetus ID Race Codes Race Delivery Type , Spontane ous [id number] Bhupendra Calculation Initial Bhupendra Date Initial Exam Date Initial Exam Provider Initial Ultrasound Date Last Menstrual Period Date Ultra Sound Weeks Gestation 0 Eighteen To Twenty Week Bhupendra Update Ultra Sound Date Fundal Height At Umbil Quickening Date Ultra Sound Latest Weeks Gestation Final Bhupendra Confirmed By Final Bhupendra Confirmed Date Final Bhupendra Date Ultra Sound Latest Days Gestation 0 0 Menstrual History Last Menstrual Date Menses Monthly On Bcp Conception Prior Menses Frequency Hcg Plus Date Menarche Onset Age Delivery Information Delivery Date Delivery Type Labor Anesthesia Weeks Gestation Incision Type Labor Labor Length Hrs Delivered By Post Complications Tubal Sterilization Discharge Date Comments 5 Discharge Information Feeding Method Contraceptive Method Maternal HG B and HCT Levels Ob Episode Information Episode Created Date Number of Fetuses Patient Bloodtype Patient rh Status Prepregnancy Weight lbs Domestic Partner Domestic Partner Phone Father Name Desktop Publishing Associate Status 01/29/20 22 1 CLOSED Fetus Data First Name Last Name Admitted to NICU Weight (g) Sex Living Outcome Pediatric Complications Fetus ID Race Codes Race Delivery Type F Full Term [id number] Vaginal Delivery Bhupendra Calculation Initial Bhupendra Date Initial Exam Date Initial Exam Provider Initial Ultrasound Date Last Menstrual Period Date Ultra Sound Weeks Gestation 0 Eighteen To Twenty Week Bhupendra Update Ultra Sound Date Fundal Height At Umbil Quickening Date Ultra Sound Latest Weeks Gestation Final Bhupendra Confirmed By Final Bhupendra Confirmed Date Final Bhupendra Date Ultra Sound Latest Days Gestation 0 0 Menstrual History Last Menstrual Date Menses Monthly On Bcp Conception Prior Menses Frequency Hcg Plus Date Menarche Onset Age Delivery Information Delivery Date Delivery Type Labor Anesthesia Weeks Gestation Incision Type Labor Labor Length Hrs Delivered By Post Complications Tubal Sterilization Discharge Date Comments 6 40 Discharge Information Feeding Method Contraceptive Method Maternal HG B and HCT Levels Ob Episode Information Episode Created Date Number of Fetuses Patient Bloodtype Patient rh Status Prepregnancy Weight lbs Domestic Partner Domestic Partner Phone Father Name Desktop Publishing Associate Status 01/29/20 22 1 CLOSED Fetus Data First Name Last Name Admitted to NICU Weight (g) Sex Living Outcome Pediatric Complications Fetus ID Race Codes Race Delivery Type F Full Term [id number] Primary Bhupendra Calculation Initial Bhupendra Date Initial Exam Date Initial Exam Provider Initial Ultrasound Date Last Menstrual Period Date Ultra Sound Weeks Gestation 0 Eighteen To Twenty Week Bhupendra Update Ultra Sound Date Fundal Height At Umbil Quickening Date Ultra Sound Latest Weeks Gestation Final Bhupendra Confirmed By Final Bhupendra Confirmed Date Final Bhupendra Date Ultra Sound Latest Days Gestation 0 0 Menstrual History Last Menstrual Date Menses Monthly On Bcp Conception Prior Menses Frequency Hcg Plus Date Menarche Onset Age Delivery Information Delivery Date Delivery Type Labor Anesthesia Weeks Gestation Incision Type Labor Labor Length Hrs Delivered By Post Complications Tubal Sterilization Discharge Date Comments 8 40 Discharge Information Feeding Method Contraceptive Method Maternal HG B and HCT Levels Ob Episode Information Episode Created Date Number of Fetuses Patient Bloodtype Patient rh Status Prepregnancy Weight lbs Domestic Partner Domestic Partner Phone Father Name Desktop Publishing Associate Status 01/29/20 22 1 CLOSED Fetus Data First Name Last Name Admitted to NICU Weight (g) Sex Living Outcome Pediatric Complications Fetus ID Race Codes [place] [id number] Vaginal Delivery Bhupendra Calculation Initial Bhupendra Date Initial Exam Date Initial Exam Provider Initial Ultrasound Date Last Menstrual Period Date Ultra Sound Weeks Gestation 0 Eighteen To Twenty Week Bhupendra Update Ultra Sound Date Fundal Height At Umbil Quickening Date Ultra Sound Latest Weeks Gestation Final Bhupendra Confirmed By Final Bhupendra Confirmed Date Final Bhupendra Date Ultra Sound Latest Days Gestation 0 0 Menstrual History Last Menstrual Date Menses Monthly On Bcp Conception Prior Menses Frequency Hcg Plus Date Menarche Onset Age Delivery Information Delivery Date Delivery Type Labor Anesthesia Weeks Gestation Incision Type Labor Labor Length Hrs Delivered By Post Complications Tubal Sterilization Discharge Date Comments 2 35 true Discharge Information Feeding Method Contraceptive Method Maternal HG B and HCT Levels
--- OUTSIDE RECORDS SUMMARY | 2025-02-18 19:51 | XMS_ITS | Clinical Summary ---
Author Organization [facility] Address [address] [place] [id number] Care Team Providers Care Stencil Printer Name Role Phone No, Physician Primary Care Provider [phone] Allergies No known active allergies Medications brimonidine (ALPHAGAN) 0.2 % ophthalmic solution INSTILL 1 DROP INTO EACH EYE TWICE DAILY 03/02/2020 Active dorzolamide-sal oloL (COSOPT) 22.3-6.8 mg/mL ophthalmic solution INSTILL 1 DROP INTO EACH EYE TWICE DAILY 03/04/2020 Active latanoprost (XALATAN) 0.005 % ophthalmic solution INSTILL 1 DROP INTO EACH EYE AT BEDTIME 01/09/2020 Active pilocarpine (PILOCAR) 1 % ophthalmic solution INSTILL 1 DROP INTO EACH EYE TWICE DAILY 03/06/2020 Active Active Problems No known active problems Family History Medical History Relation Name Comments Breast cancer Neg Hx Social History Tobacco Use Types Packs/Day Years Used Date Smoking Tobacco: Never Alcohol Use Standard Drinks/Week Comments Not Currently 0 (1 standard drink = 0.6 oz pur e alcohol) Personal Safety Answer Date Recorded Getting School Help Needed Not on file 05/26 Comments No Sex and Gender Information Value Date Recorded Sex Assigned at Not on file Legal Sex Female 8:37 PM SCRAP BALER Gender Identity Not on file Sexual Orientation Not on file Obstetrics History Para Term AB IAB SAB Ectopic Multiple Livin g Live Births 4 3 3 1 1 3 Date Outcome GA Total Labor Labor/2nd/3rd Weight Sex Type Anes PTL Raven A1 A5 Name Clin SAB Term Term Term Last Filed Vital Signs Vital Sign Reading Time Taken Comments Blood Pressure 118/70 04/12/2020 2:52 PM SCRAP BALER Pulse - - Temperature - - Respiratory Rate - - Oxygen Saturation - - Inhaled Oxygen Concentration - - Weight 81.1 kg (178 lb 12.8 oz) 04/12/2020 2:52 PM SCRAP BALER Height 149.9 cm (4' 11) 04/12/2020 2:52 PM SCRAP BALER Body Mass Index 36.11 04/12/2020 2:52 PM SCRAP BALER Plan of Treatment Not on file Insurance Member Subscriber Plan / Payer (Ef fective 2019-Present) Name:Jaye Berman Relation to Subscriber:Self Name:Jaye Berman Payer ID:[id number] (NAIC) Type:MEDICAID RISK OTHER Address: [place] [id number] Care Teams Stencil Printer Relationship Specialty Start Date End Date No, Physician PCP - General 03/16/20
--- OUTSIDE RECORDS SUMMARY | 2025-02-18 19:51 | XMS_ITS | Clinical Summary ---
Author Organization [facility] [employer] Address [address] [place] [address] Care Team Providers Care Brass Polisher Name Role Phone Esvin Graff MD Primary Care Provider Source Comments [facility] [employer],non-owned Affiliates and Associated Physician Practices is amultiple site organization consisting of ambulatory clinics and hospital sitesin [place], [place], [place] and [place]. This disclosure is being madepursuant to the Care Everywhere program and may not contain all information available regarding this patient. Last updated 17.[employer] [facility] Allergies No known active allergies Medications * Be aware that medications may not be up to date on this document. Alwaysverify current medications with the patient. No known medications Active Problems Problem Noted Date Diagnosed Date Flat anterior chamber hypotony, left 06/24/2020 Glaucoma filtering bleb of both eyes 06/24/2020 Nuclear sclerotic cataract, left 05/04/2020 Chronic angle-closure glaucoma of both eyes, mod erate stage 02/17/2020 Overview (02/17/2020): Patient with history of recent diagnosis of glaucoma while visiting [place] the summer. Patient recalls intraocular pressure might have been 25 at the time medication was started. Exam today after dilation shows no visible angle structures with significant peripheral iris roll/plateau. There might be 10-15% of the trabecular meshwork visible in both eyes inferiorly with firm compression and cannot rule out extensive angle-closure. We will plan repeat gonioscopy undilated soon to determine best options for treatment. We are classifying glaucoma as moderate based on visual field criteria with dense superior nasal defect in the right eye and possibly early development of changes also on the left. Visual field testing was performed without refraction. Luke Shanks MD 02/17/2020 10:08 AM Pterygium, right 02/17/2020 Social History Tobacco Use Types Packs/Day Years Used Date Smoking Tobacco: Never Smokeless Tobacco: Never Alcohol Use Standard Drinks/Week Comments Yes 0 (1 standard drink = 0.6 oz pur e alcohol) PHQ-2 Answer Date Recorded Patient Health Questionnaire-2 Score 0 09/16/2024 Comments No Sex and Gender Information Value Date Recorded Sex Assigned at Not on file Legal Sex Female 6:23 PM YARDAGE CONTROL OPERATOR Gender Identity Not on file Sexual Orientation Not on file Last Filed Vital Signs Vital Sign Reading Time Taken Comments Blood Pressure 137/81 06/23/2020 4:16 PM CDT Pulse 53 06/23/2020 4:16 PM CDT Temperature 36.6 C (97.8 F) 06/23/2020 4:10 PM CDT Respiratory Rate 17 06/23/2020 1:45 PM CDT Oxygen Saturation 100% 06/23/2020 4:16 PM CDT Inhaled Oxygen Concentration - - Weight 81.2 kg (179 lb) 06/23/2020 1:56 PM CDT Height 160 cm (5' 3) 06/23/2020 1:56 PM CDT Body Mass Index 31.71 06/23/2020 1:56 PM CDT Plan of Treatment Upcoming Encounters Date Type Department Care Team (Late st Contact Info) Description 04/21/2025 2:40 PM YARDAGE CONTROL OPERATOR Office Visit [facility] - Ophthalmology [address] [place] [phone] Luke Shanks MD [address] [place] [address] Health Maintenance Due Date Last Done Comments COLOGUARD (AGES 45-75) - COL ON CA SCREENING 1968 COLON MONITORING 1968 COLONOSCOPY - COLON CA SCREENING 1968 CT COLONOGRAPHY - COLON CA SCREENING 1968 Colorectal Cancer Screening 1968 FIT - COLON CA SCREENING 1968 FLEX SIG - COLON CA SCREENING 1968 LIPID TESTING 1968 MAMMOGRAM 1968 HIV SCREENING 02/28/1983 HEPATITIS C SCREENING 02/24/1986 DTAP/TDAP/TD VACCINES (1 - Tdap) 02/28/1987 HEPATITIS B VACCINE (1 of 3 - 19+ 3-dose series) 02/28/1987 PNEUMOCOCCAL VACCINE 50+ (1 of 1 - PCV) 02/28/2018 ZOSTER VACCINE (1 of 2) 02/28/2018 COVID-19 VACCINE (1 - 2024-2 6 season) 2024 INFLUENZA VACCINE (#1) 2024 PAP SMEAR 01/30/2025 01/30/2022, 01/30/2022 DEPRESSION SCREENING Completed 09/16/2024 HIB VACCINE Aged Out No longer eligi ble based on patient's age to complete this topic HPV VACCINE Aged Out No longer eligi ble based on patient's age to complete this topic MENINGOCOCCAL (Group B) VACCINE SHARED DECISION-MAKING Aged Out No longer eligible based on patient's age to complete this topic MENINGOCOCCAL GROUPS A/C/Y/W VACCINE Aged Out No longer eligible b ased on patient's age to complete this topic Medical Devices Implanted Type Area Supervisor Extruding Department Device Identifier Shelf Expiration Date Model / Serial / Lot [id number] Implanted:Qty: 1 on 05/03/2020 by Luke Shanks MD at [facility] Right: Eye [employer] 08/15/2022 [id number] / [id number] / [id number] Implanted:Qty: 1 on 06/21/2020 by Luke Shanks MD at [facility] Left: Eye 11/13/2022 [id number] / [id number] / Insurance [facility] Care Teams Brass Polisher Relationship Specialty Start Date End Date Esvin Graff MD [address] [place] [address] PCP - General 12/09/19
--- OUTSIDE RECORDS SUMMARY | 2025-02-18 21:00 | XMS_ITS | Clinical Summary ---
Author Organization [facility] [employer] Address [address] [place] [address] Care Team Providers Care Configuration Specialist Name Role Phone Esvin Graff MD Primary Care Provider [phone] Source Comments [facility] [employer],non-owned Affiliates and Associated Physician Practices is amultiple site organization consisting of ambulatory clinics and hospital sitesin [place], [place], [place] and [place]. This disclosure is being madepursuant to the Care Everywhere program and may not contain all information available regarding this patient. Last updated 17.[employer] Allergies No known active allergies Medications * [...] of recent diagnosis of glaucoma while visiting [place] the summer. 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 Right: Eye [employer] 08/15/2022 [id number] / [id number] / [id number] Implanted:Qty: 1 on 06/21/2020 by Luke Shanks MD at [facility] Left: Eye 11/13/2022 [id number] / [id number] / Insurance [facility] Care Teams Configuration Specialist Relationship Specialty Start Date End Date Esvin Graff MD [address] [place] [address] PCP - General 12/09/19
--- OUTSIDE RECORDS SUMMARY | 2025-02-18 21:00 | XMS_ITS | Clinical Summary ---
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 Gender Identity Not on file Sexual Orientation [...] Comments Blood Pressure 118/70 04/12/2020 2:52 PM INSIDE SALES ASSOCIATE Pulse - - Temperature - - Respiratory Rate - - Oxygen Saturation - - Inhaled Oxygen Concentration - - Weight 81.1 kg (178 lb 12.8 oz) 04/12/2020 2:52 PM INSIDE SALES ASSOCIATE Height 149.9 cm (4' 11) 04/12/2020 2:52 PM INSIDE SALES ASSOCIATE Body Mass Index 36.11 04/12/2020 2:52 PM INSIDE SALES ASSOCIATE Plan of Treatment Not on file Insurance Member Subscriber Plan / Payer (Ef fective 2019-Present) Name:Jaye Berman Relation to Subscriber:Self Name:Jaye Berman Payer ID:[id number] (NAIC) Type:MEDICAID RISK OTHER Address: [place] [id number] Care Teams Compound Specialist Relationship Specialty Start Date End Date No, Physician PCP - General 03/16/20
== END 2025-02-18 18:47 | disposition home or self-care (01) ==
PROVIDERS: Emergency Provider Emergency Medicine; PCP Family Medicine
DX: R19.7 Diarrhea, unspecified (principal); R11.2 Nausea with vomiting, unspecified; M54.50 Low back pain, unspecified; Z86.2 Personal history of diseases of the blood and blood-forming organs and certain disorders involving the immune mechanism; Z77.22 Contact with and (suspected) exposure to environmental tobacco smoke (acute) (chronic)
CPT/HCPCS: 36415; 74177; 80053; 81001; 81025; 83690; 85025; 96361; 96374; 99284; J2405; J7120; Q9967